=== PATIENT | female | born 1990 | race African-American/Black ===

== ENCOUNTER 2017-02-18 00:02 | Emergency (ER) | payer OTHER ==
[~2017-02-18] VITALS: Ht 160 cm; Wt 64.4 kg
--- NOTE | 2017-02-18 00:10 | NUR ---
BIBA TO ER BED 11
[2017-02-18 00:14] VITALS: BP 130/72
--- NOTE | 2017-02-18 00:19 | NUR ---
26Y/F BIBA C/O DRUG INGESTION. NO PMH, NKA. PER EMS PT DRANK A THC INFUSED BEVERAGE FOR THE FIRST TIME. PT WAS FOUND PASSED OUT BY BOYFRIEND, AND CALLED EMS. PT AA&O X4. PT ANSWERS QUESTIONS MAINLY NON VERBALLY , PT DOES SPEAK BUT SPEECH IS SLOWED AND REACTIONS ARE SLOWED. PT DENIES PAIN , N/V/D, ANT THIS TIME. EMS STARTED IV IN FIELD 20 G TO LEFT AC AND RECIEVED 500 ML BOLUS NS. PT IN BED, ER MD NOTIFIED OF PT STATUS, COMFORT NEEDS MET AT THIS TIME.
--- NOTE | 2017-02-18 00:20 | NUR ---
Patient being evaluated by physician at bedside.
[2017-02-18] MEDS ORDERED: NACL 0.9% 1,000 ML IV ONE (00:30)
[2017-02-18 01:01] LABS: HEMATOCRIT 37.3 % (36-48); HEMOGLOBIN 12.6 g/dL (12.0-16.0); MEAN CORPUSCULAR HEMOGLOBIN 30 pg (27-31); MEAN CORPUSCULAR HGB CONC 34 g/dL (33-37); MEAN CORPUSCULAR VOLUME 89 fL (80-94); PLATELET COUNT (AUTO) 193 K/uL (140-450); RED BLOOD CELL COUNT(AUTO) 4.21 MIL/uL (4.20-5.40); RED CELL DISTRIBUTION WIDTH 11.8 % (11.6-13.7); WHITE BLOOD COUNT (AUTO) 4.8 K/uL (4.8-10.8)
[2017-02-18 01:12] LABS: BASOPHILS % (MANUAL) 1 % (0-2); EOSINOPHILS % (MANUAL) 2 % (0-4); LYMPHOCYTES % (MANUAL) 40 % (20-46); MONOCYTES % (MANUAL) 15 % (5-12)
--- NOTE | 2017-02-18 01:12 | NUR ---
PT IN BED RESTING, BOYFRIEND AT BEDSIDE.
[2017-02-18 01:30] LABS: CHLORIDE 105 mmol/L (98-107); POTASSIUM 3.5 mmol/L (3.5-5.1); SODIUM SERUM 141 mmol/L (136-145)
[2017-02-18 01:31] LABS: ALBUMIN 3.5 g/dL (3.4-5.0); ANION GAP 13.3 (8-16); ASPARTATE AMINOTRANSFERASE 18 U/L (15-37); CARBON DIOXIDE 26.2 mmol/L (21-32); CREATININE 0.9 mg/dL (0.6-1.3); GFR ARICAN-AMERICAN 99 mL/min (>90); GLUCOSE 117 mg/dL (74-106); TOTAL BILIRUBIN 0.2 mg/dL (0.0-1.0); UREA NITROGEN, BLOOD 16 mg/dL (7-18)
[2017-02-18 02:39] LABS: APPEARANCE,URINE CLEAR (CLEAR); BILIRUBIN,URINE NEGATIVE (NEGATIVE); BLOOD, URINE NEGATIVE (NEGATIVE); COLOR,URINE YELLOW (YELLOW); LEUKOCYTE ESTERASE ,URINE NEGATIVE (NEGATIVE); NITRITE, URINE NEGATIVE (NEGATIVE); PH,URINE 5.5 (5.0-9.0); UGLUCOSE NEGATIVE (NEGATIVE)
[2017-02-18 02:48] LABS: BARBITURATE, URINE NEG. ng/ml (NEG <=200); BENZODIAZEPINE, URINE NEG. ng/mL (NEG <=200); CANNABINOID, URINE POS. ng/mL (NEG <=50); COCAINE, URINE NEG. ng/mL (NEG <=300); OPIATE, URINE NEG. ng/mL (NEG <=2000); PHENCYCLIDINE SCREEN,URINE NEG. ng/mL (NEG <=25)
[2017-02-18 02:51] LABS: RBC,URINE 0-5 (RARE) /HPF (0-5); WBC,URINE 0-5 (RARE) /HPF (0-5)
--- NOTE | 2017-02-18 03:17 | NUR ---
Dr. Sanchez re-evaluating patient at bedside.
--- NOTE | 2017-02-18 03:40 | NUR ---
IV removed, catheter intact and site benign. Applied folded 4x4 gauze and tape to stop bleeding.
--- NOTE | 2017-02-18 03:46 | NUR ---
Patient discharged with v/s stable. Written and verbal after care instructions given and explained. Patient verbalized understanding. Ambulatory with steady gait. All questions addressed prior to discharge. Advised to follow up with PMD.
[2017-02-18 03:47] VITALS: BP 122/70
== END 2017-02-18 03:47 | disposition home or self-care (01) ==
LOC: MED 00:02
DX: T40.7X5A Adverse effect of cannabis (derivatives), initial encounter (principal); Y92.89 Other specified places as the place of occurrence of the external cause
CPT/HCPCS: 36415; 80053; 80305; 81001; 81025; 85025; 96360; 99284; G0482; J7030